=== PATIENT | male | born 1985 | race Caucasian/White ===

== ENCOUNTER 2020-02-21 08:17 | Outpatient (REF) | payer OTHER, SELFPAY ==
[2020-02-21 11:43] LABS: Anion Gap 12 (12-20); Blood Urea Nitrogen 8 mg/dL (9-16); Calcium 9.6 mg/dL (8.4-10.2); Carbon Dioxide 30 mmol/L (22-29); Chloride 103 mmol/L (96-108); Cholesterol 280 mg/dL; Estimated Glomerular Filt Rate > 60; Glucose Fasting 80 mg/dL (60-99); HDL Cholesterol 42 mg/dL; LDL Cholesterol Calculated 200 mg/dl; Potassium 4.5 mmol/l (3.3-5.1); Sodium 140 mmol/L (135-145); Triglycerides 192 mg/dL
[2020-02-21 12:05] LABS: Free T4 (Free Thyroxine) 0.94 ng/dL (0.71-1.85); Thyroid Stimulating Hormone 3.74 uIU/mL (0.32-4.0)
== END 2020-02-21 08:18 | disposition home or self-care (01) ==
LOC: HO.HMGCLDS 08:17
PROVIDERS: PCP Internal Medicine; Visit Provider Internal Medicine
DX: E03.9 Hypothyroidism, unspecified (principal); I10 Essential (primary) hypertension
CPT/HCPCS: 80048; 80061; 84439; 84443

== ENCOUNTER 2020-08-03 12:15 | Outpatient (REF) | payer OTHER, SELFPAY ==
[2020-08-03 14:49] LABS: Alanine Aminotransferase 23 U/L (0-40); Aspartate Amino Transferase 21 U/L (5-37); Cholesterol 187 mg/dL; HDL Cholesterol 38 mg/dL; LDL Cholesterol Calculated 111 mg/dl; Triglycerides 193 mg/dL
[2020-08-03 15:09] LABS: Thyroid Stimulating Hormone 1.32 uIU/mL (0.32-4.0)
== END 2020-08-03 12:16 | disposition home or self-care (01) ==
LOC: HO.HMGCLDS 12:15
PROVIDERS: PCP Internal Medicine; Visit Provider Internal Medicine
DX: E03.9 Hypothyroidism, unspecified (principal); E78.5 Hyperlipidemia, unspecified
CPT/HCPCS: 36415; 80061; 84439; 84443; 84450; 84460